=== PATIENT | female | born 1980 | race Caucasian/White ===

== ENCOUNTER 2018-08-13 10:01 | Emergency (ER) | payer BC, MEDICAID ==
[2018-08-13 10:14] VITALS: BP 101/67
[2018-08-13] MEDS ORDERED: KETOROLAC TROMETHAMINE 60 MG/2 ML SDV IM ONE (10:27)
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
[2018-08-13] MEDS ORDERED: DIPH/PERTUSS(ACELL)/TETANUS VAC/PF 0.5 ML SYR (>=10YO) IM ONE (10:34)
== END 2018-08-13 11:02 | disposition home or self-care (01) ==
LOC: ER 10:01
DX: T22.211A Burn of second degree of right forearm, initial encounter (principal); X15.0XXA Contact with hot stove (kitchen), initial encounter; Z23 Encounter for immunization
CPT/HCPCS: 99283; 96372; 90471; 90715; J1885